=== PATIENT | female | born 1975 | race African-American/Black ===

== ENCOUNTER 2018-08-07 18:39 | Emergency (ER) | payer OTHER ==
[2018-08-07 18:45] VITALS: BP 136/70
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
--- NOTE | 2018-08-07 19:21 | RADIOLOGY REPORT (SQ) ---
EXAM DESCRIPTION: KNEE RIGHT 4 VIEWS COMPLETED DATE/TIME: 08/07/2018 7:04 pm REASON FOR STUDY: pain s/p injury COMPARISON: None. NUMBER OF VIEWS: Four views. TECHNIQUE: AP, lateral, and both oblique radiographic images acquired of the right knee. LIMITATIONS: None. FINDINGS: MINERALIZATION: Normal. BONES: No acute fracture or dislocation. No worrisome bone lesions. JOINT: No effusion. SOFT TISSUES: Changes of a right knee effusion. OTHER: No other significant finding. IMPRESSION: RIGHT KNEE EFFUSION. NO FRACTURES SEEN. TECHNICAL DOCUMENTATION: JOB ID: [id number] [employer] [address]- All Rights Reserved Reading location - IP/workstation name: [email or web address]
[2018-08-07] MEDS ORDERED: HYDROCODONE/ACETAMINOPHEN 5-325 MG TABLET PO ONE (19:35)
== END 2018-08-07 19:50 | disposition home or self-care (01) ==
LOC: ER 18:39
DX: M25.561 Pain in right knee (principal); M25.461 Effusion, right knee
CPT/HCPCS: 99283; 73564; L1830